=== PATIENT | male | born 2000 | race Two or more races ===

== ENCOUNTER 2022-11-25 11:09 | Emergency (ER) | payer MEDICAID ==
[~2022-11-25] VITALS: Ht 167.6 cm; Wt 63.6 kg
[2022-11-25 11:26] VITALS: TEMP 97.9
[2022-11-25 14:30] VITALS: BP 132/80; PULSE 65; RESP 12
[2022-11-25] MEDS ORDERED: ACYC-138 PO (14:32)
== END 2022-11-25 14:45 | disposition home or self-care (01) ==
LOC: EDBD → EMS 11:09
DX: B02.9 Zoster without complications (principal); F12.90 Cannabis use, unspecified, uncomplicated
CPT/HCPCS: 99283; Z7502

== ENCOUNTER 2022-12-04 10:57 | Emergency (ER) | payer MEDICAID ==
[~2022-12-04] VITALS: Ht 170.2 cm; Wt 88.6 kg
[~2022-12-04 10:57] MED LIST: ACYC-138 PO
[2022-12-04 11:03] VITALS: TEMP 97.9
[2022-12-04 11:42] VITALS: BP 127/68; PULSE 84; RESP 18
[2022-12-04] MEDS ORDERED: IBUPROFEN 400 MG TABLET PO ONE (13:00)
== END 2022-12-04 13:10 | disposition home or self-care (01) ==
LOC: EMS 10:58
DX: S90.31XA Contusion of right foot, initial encounter (principal); M79.671 Pain in right foot; F12.90 Cannabis use, unspecified, uncomplicated; X58.XXXA Exposure to other specified factors, initial encounter; Y93.89 Activity, other specified; Y92.89 Other specified places as the place of occurrence of the external cause; Y99.8 Other external cause status
CPT/HCPCS: 99283